=== PATIENT | female | born 1990 | race Caucasian/White ===

== ENCOUNTER 2018-01-08 00:25 | Emergency (ER) | payer OTHER ==
[~2018-01-08] VITALS: Ht 157.5 cm; Wt 77.1 kg
[2018-01-08 00:25] VITALS: BP_SYST 138
[2018-01-08 01:06] VITALS: BP_SYST 134
== END 2018-01-08 01:06 ==
LOC: SED 00:25
DX: F10.129 Alcohol abuse with intoxication, unspecified (principal); R03.0 Elevated blood-pressure reading, without diagnosis of hypertension
CPT/HCPCS: 99283